=== PATIENT | female | born 1950 | race Caucasian/White ===

== ENCOUNTER 2017-08-14 11:32 | Emergency (ER) | payer OTHER, BC ==
[2017-08-14] MEDS: VANCOMYCIN 1,000 MG/NS 250 ML IV (12:15)
[2017-08-14] MEDS ORDERED: VANCOMYCIN 1 GM/200 ML INJ 200 ML IV (12:15)
[2017-08-14 13:06] LABS: AUTOMATED NEUTROPHIL # 10.2 TH/MM3 (1.8-7.7); BASOPHIL % 0.2 % (0.0-2.0); EOSINOPHIL # 0.1 TH/MM3 (0-0.4); EOSINOPHIL % 0.6 % (0.0-4.0); HEMATOCRIT 33.9 % (35.0-46.0); HEMO FLAGS DIFF FINAL; HEMOGLOBIN 10.6 GM/DL (11.6-15.3); LYMPH % 4.5 % (9.0-44.0); LYMPHOCYTE # 0.5 TH/MM3 (1.0-4.8); MEAN CELL VOLUME 89.7 FL (80.0-100.0); MEAN CORPUSCULAR HGB CONC 31.2 % (32.0-36.0); MEAN PLATELET VOLUME 8.6 FL (7.0-11.0); MONO % 6.1 % (0.0-8.0); MONOCYTE # 0.7 TH/MM3 (0-0.9); NEUT % 88.6 % (16.0-70.0); PLATELET COUNT 141 TH/MM3 (150-450); RED BLOOD COUNT 3.78 MIL/MM3 (4.00-5.30); RED CELL DISTRIBUTION WIDTH 19.5 % (11.6-17.2); WHITE BLOOD COUNT 11.6 TH/MM3 (4.0-11.0)
[2017-08-14 13:29] LABS: ALBUMIN 2.4 GM/DL (3.4-5.0); ALKALINE PHOSPHATASE 206 U/L (45-117); ALT (GPT) 37 U/L (10-53); ANION GAP 11 MEQ/L (5-15); AST (GOT) 32 U/L (15-37); BICARBONATE 30.8 MEQ/L (21.0-32.0); BLOOD UREA NITROGEN 41 MG/DL (7-18); CALCIUM 8.8 MG/DL (8.5-10.1); CHLORIDE 96 MEQ/L (98-107); CREATININE 3.29 MG/DL (0.50-1.00); GLOMERULAR FILTRATION RATE 14 ML/MIN (>89); GLUCOSE,RANDOM 73 MG/DL (74-106); MAGNESIUM 2.1 MG/DL (1.5-2.5); SODIUM (NA) 138 MEQ/L (136-145); TOTAL BILIRUBIN ADULT 0.6 MG/DL (0.2-1.0); TOTAL PROTEIN 5.2 GM/DL (6.4-8.2)
[2017-08-14 13:36] LABS: POTASSIUM 2.9 MEQ/L (3.5-5.1)
[2017-08-14 13:37] LABS: AMMONIA 11 MCMOL/L (11-32)
[2017-08-14 13:42] LABS: BACTERIA, URINE OCC /hpf; BILIRUBIN, URINE NEG (NEG); BLOOD, URINE MOD (NEG); COMMENT (UR) CATH-CULTURE IND; CULTURE IF INDICATED CATH CULTURE IND; GLUCOSE,URINE NEG (NEG); KETONE, URINE TRACE mg/dL (NEG); MUCUS URINE FEW /lpf (OCC); NITRITE,URINE NEG (NEG); URINE COLOR YELLOW (YELLW/STRAW); URINE LEUKOCYTE ESTERASE NEG (NEG)
[2017-08-14] MEDS: POTASSIUM CHLORIDE 20 MEQ CONTROLLED RELEASE TAB PO (14:22)
== END 2017-08-14 14:55 | disposition home or self-care (01) ==
LOC: NEPE 11:32
DX: R30.0 Dysuria (principal); B95.2 Enterococcus as the cause of diseases classified elsewhere; K72.90 Hepatic failure, unspecified without coma; K74.60 Unspecified cirrhosis of liver; I12.9 Hypertensive chronic kidney disease with stage 1 through stage 4 chronic kidney disease, or unspecified chronic kidney disease; N18.9 Chronic kidney disease, unspecified
CPT/HCPCS: 80053; 81001; 82140; 83735; 85025; 87040; 87077; 87086; 87186; 99283

== ENCOUNTER 2017-08-22 07:54 | Day surgery (SDC) | payer OTHER ==
[~2017-08-22 07:54] MED LIST: AMLO10TA2 PO; CALC0.25 PO; CEPH-460 PO; CLON0.1T PO; FLUO10TA PO; FURO40TA PO; OMEP40CA2 PO; PROP10TA6 PO; SODI650T PO
[2017-08-22 09:04] VITALS: BP 117/73; PULSE 57; RESP 18; TEMP 98.4; O2SAT 100
[2017-08-22 10:05] VITALS: BP 110/73; PULSE 60; RESP 18; TEMP 97.6; O2SAT 97
[2017-08-22] MEDS ORDERED: ALBUMIN HUMAN 25% 12.5GM-W/25GM FOR 37.5GM IV ONE (10:15)
[2017-08-22] MEDS ORDERED: ALBUMIN HUMAN 25% 25GM-W/12.5GM FOR 37.5GM IV ONE (10:15)
[2017-08-22 10:20] VITALS: BP 133/80; PULSE 57; RESP 18; O2SAT 95
[2017-08-22] MEDS ORDERED: LIDOCAINE HCL 1% 20 ML VIAL ONE (11:44)
[2017-08-22 11:47] LABS: PERITONEAL HISTIOCYTES 13 %; PERITONEAL LYMPHS 14 %; PERITONEAL MESOTHELIAL 2 %; PERITONEAL MONOS 26 %; PERITONEAL POLYS(SEGS) 45 %
[2017-08-22 12:01] LABS: PERITONEAL RBC 17 /MM3 (0-0)
--- NOTE | 2017-08-22 16:40 | RADRPT ---
EXAM DATE/TIME: 08/22/2017 08:15 [facility] COMPARISON: No previous studies available for comparison. INDICATIONS : Ascites. MEDICAL HISTORY : Hypertension. Alcoholic cirrhosis. Stage 4 kidney disease. Ulcer. SURGICAL HISTORY : Cholecystectomy Tubal ligation. Gastric bypass. Breast augmentation. ENCOUNTER: Initial ACUITY: 1 day PAIN SCORE: 0/10 LOCATION: Right lower quadrant FLUID: Total volume of 6,200 cc of clear, yellow fluid was removed. Fluid was sent to lab for ordered studies. Post procedure scanning reveals no hematoma or other complication. TECHNIQUE: 1. Ultrasound guidance for abdominal paracentesis. 2. Paracentesis. The risks, benefits, and alternatives to ultrasound guided paracentesis were explained to the patient in detail including the risk of bleeding and infection. Written and verbal informed consent was obt ained. With the patient on the ultrasound table, ultrasound imaging was used to select the most appropriate approach for paracentesis. Overlying skin was prepped and draped in the usual sterile fashion and wi th a local anesthetic, a dermatotomy was made with an 11 blade scalpel. A 6 Turkmen Ofr-H-hvphtpas ca theter was introduced into the peritoneal cavity and fluid was collected. The patient tolerated the procedure well and left the ultrasound suite in stable condition. CONCLUSION: Uncomplicated ultrasound guided paracentesis. Ruddy Nguyen MD on August 22, 2017 at 16:37 Board Certified Radiologist. This report was verified electronically.
== END 2017-08-22 11:16 | disposition home or self-care (01) ==
LOC: HRAD 07:54 → HRIP 08:00 → HRAD 11:16
PROVIDERS: ATTEND Internal Medicine Gastroenterology
DX: R18.8 Other ascites (principal); K74.60 Unspecified cirrhosis of liver; I12.9 Hypertensive chronic kidney disease with stage 1 through stage 4 chronic kidney disease, or unspecified chronic kidney disease; N18.4 Chronic kidney disease, stage 4 (severe); Z98.84 Bariatric surgery status
CPT/HCPCS: 49083; 82042; 84157; 87070; 87205; 88112; 89051; 96365; C1729; P9047

== ENCOUNTER 2017-09-05 09:50 | Day surgery (SDC) | payer MEDICARE ==
[2017-09-05 10:18] VITALS: BP 142/90; PULSE 100; RESP 16; TEMP 96.8; O2SAT 98
[2017-09-05] MEDS ORDERED: LIDOCAINE HCL 1% 20 ML VIAL ONE (10:50)
[2017-09-05 11:45] VITALS: BP 144/92; PULSE 76; RESP 20; TEMP 97.8; O2SAT 95
[2017-09-05] MEDS ORDERED: ALBUMIN HUMAN 25% 12.5GM-W/25GM FOR 37.5GM IV ONE (12:30)
[2017-09-05] MEDS ORDERED: ALBUMIN HUMAN 25% 25GM-W/12.5GM FOR 37.5GM IV ONE (12:30)
--- NOTE | 2017-09-05 16:43 | RADRPT ---
EXAM DATE/TIME: 09/05/2017 09:56 [facility] COMPARISON: US GUIDED ABD PARACENTESIS, August 22, 2017, 8:15. INDICATIONS : Ascites. MEDICAL HISTORY : Hypertension. Alcoholic cirrhosis. Stage IV renal disease. Ulcer. Ascites. SURGICAL HISTORY : Cholecystectomy Tubal ligation. Gastric bypass. Breast augmentation. Paracentesis. ENCOUNTER: Subsequent ACUITY: 2 weeks PAIN SCORE: 2/10 LOCATION: Right lower quadrant FLUID: Total volume of 6500 cc of clear, yellow fluid was removed. Fluid was discarded. Paracentesis was therapeutic only. Post procedure scanning reveals no hematoma or other complication. TECHNIQUE: 1. Ultrasound guidance for abdominal paracentesis. 2. Paracentesis. The risks, benefits, and alternatives to ultrasound guided paracentesis were explained to the patient in detail including the risk of bleeding and infection. Written and verbal informed consent was obt ained. With the patient on the ultrasound table, ultrasound imaging was used to select the most appropriate approach for paracentesis. Overlying skin was prepped and draped in the usual sterile fashion and wi th a local anesthetic, a dermatotomy was made with an 11 blade scalpel. A 6 B[place] Lls-F-hyhqqnhn ca theter was introduced into the peritoneal cavity and fluid was collected. The patient tolerated the procedure well and left the ultrasound suite in stable condition. CONCLUSION: Uncomplicated ultrasound guided paracentesis. Andrew Valencia MD on September 05, 2017 at 16:40 Board Certified Radiologist. This report was verified electronically.
== END 2017-09-05 13:20 | disposition home or self-care (01) ==
LOC: HRAD 09:50 → HRIP 09:51 → HRAD 13:20
PROVIDERS: ATTEND Internal Medicine Gastroenterology
DX: K70.31 Alcoholic cirrhosis of liver with ascites (principal); I12.9 Hypertensive chronic kidney disease with stage 1 through stage 4 chronic kidney disease, or unspecified chronic kidney disease; N18.4 Chronic kidney disease, stage 4 (severe)
CPT/HCPCS: 49083; 96365; C1729

== ENCOUNTER 2017-09-15 09:32 | Day surgery (SDC) | payer MEDICARE ==
[2017-09-15 10:00] VITALS: BP 128/83; PULSE 69; RESP 16; TEMP 97.3; O2SAT 100
[2017-09-15] MEDS ORDERED: ALBUMIN HUMAN 25% 12.5GM-W/25GM FOR 37.5GM IV ONE (12:15)
[2017-09-15] MEDS ORDERED: ALBUMIN HUMAN 25% 25GM-W/12.5GM FOR 37.5GM IV ONE (12:15)
[2017-09-15 12:30] VITALS: BP 126/73; PULSE 93; RESP 16; TEMP 96.2; O2SAT 98
--- NOTE | 2017-09-15 12:35 | RADRPT ---
EXAM DATE/TIME: 09/15/2017 10:07 [facility] COMPARISON: US GUIDED ABD PARACENTESIS, September 05, 2017, 9:56. INDICATIONS : Ascites. MEDICAL HISTORY : Hypertension. Peptic ulcers. Alcohol use. Breast cancer. Cirrhosis. SURGICAL HISTORY : Right breast lumpectomy. Gastric bypass. ENCOUNTER: Subsequent ACUITY: 1 week PAIN SCORE: 0/10 LOCATION: Right lower quadrant FLUID: Total volume of 6,100 cc of clear, yellow fluid was removed. Fluid was discarded. Paracentesis was therapeutic only. Post procedure scanning reveals no hematoma or other complication. TECHNIQUE: 1. Ultrasound guidance for abdominal paracentesis. 2. Paracentesis. The risks, benefits, and alternatives to ultrasound guided paracentesis were explained to the patient in detail including the risk of bleeding and infection. Written and verbal informed consent was obt ained. With the patient on the ultrasound table, ultrasound imaging was used to select the most appropriate approach for paracentesis. Overlying skin was prepped and draped in the usual sterile fashion and wi th a local anesthetic, a dermatotomy was made with an 11 blade scalpel. A 6 Slovenian Wxf-W-lywqrqrs ca theter was introduced into the peritoneal cavity and fluid was collected. The patient tolerated the procedure well and left the ultrasound suite in stable condition. CONCLUSION: Uncomplicated ultrasound guided paracentesis. Arias Licona MD on September 15, 2017 at 12:33 Board Certified Radiologist. This report was verified electronically.
[2017-09-15] MEDS ORDERED: LIDOCAINE HCL 1% 20 ML VIAL ONE (12:49)
[2017-09-15 13:15] VITALS: BP 119/69; PULSE 93; RESP 16; O2SAT 98
[2017-09-15 13:30] VITALS: BP 116/68; PULSE 90; RESP 16; O2SAT 98
[2017-09-19] MEDS ORDERED: POTA-163 PO (11:59)
[2017-09-19] MEDS ORDERED: PROM12.54 PO (11:59)
[2017-09-19] MEDS ORDERED: PRED20 PO (11:59)
[2017-09-19] MEDS ORDERED: BIOT10TA PO (11:59)
[2017-09-19] MEDS ORDERED: ONDA8TAB7 PO (11:59)
== END 2017-09-15 13:30 | disposition home or self-care (01) ==
LOC: HRAD 09:32 → HRIP 09:35 → HRAD 13:30
PROVIDERS: ATTEND Internal Medicine Gastroenterology
DX: R18.8 Other ascites (principal); I10 Essential (primary) hypertension; K74.60 Unspecified cirrhosis of liver; Z85.3 Personal history of malignant neoplasm of breast; Z87.11 Personal history of peptic ulcer disease
CPT/HCPCS: 49083; 96365; C1729; P9047

== ENCOUNTER 2017-10-11 09:49 | Day surgery (SDC) | payer MEDICARE ==
[~2017-10-11 09:49] MED LIST changes: +BIOT10TA PO; -CEPH-460 PO; +ONDA8TAB7 PO; +POTA-163 PO; +PRED20 PO; +PROM12.54 PO
[2017-10-11 10:50] VITALS: BP 104/60; PULSE 62; RESP 16; TEMP 98; O2SAT 99
[2017-10-11] MEDS ORDERED: ALBUMIN 25% INJ 0 ML IV ONE (11:30)
[2017-10-11 11:55] VITALS: BP 97/65; PULSE 62; RESP 18; TEMP 96.9; O2SAT 96
[2017-10-11] MEDS ORDERED: LIDOCAINE HCL 1% 20 ML VIAL ONE (12:03)
--- NOTE | 2017-10-11 12:15 | RADRPT ---
EXAM DATE/TIME: 10/11/2017 10:38 [facility] COMPARISON: No previous studies available for comparison. INDICATIONS : Ascites. MEDICAL HISTORY : Carcinoma, breast. Hypertension. Cirrhosis. Peptic ulcers. ETOH abuse. Ascites. SURGICAL HISTORY : Right breast lumpectomy. Gastric bypass. Paracentesis. ENCOUNTER: [facility] ACUITY: 1 month PAIN SCORE: 0/10 LOCATION: Right lower quadrant FLUID: Total volume of 5,400 cc of clear, yellow fluid was removed. Fluid was discarded. Paracentesis was therapeutic only. TECHNIQUE: 1. Ultrasound guidance for abdominal paracentesis. 2. Paracentesis. The risks, benefits, and alternatives to ultrasound guided paracentesis were explained to the patient in detail including the risk of bleeding and infection. Written and verbal informed consent was obt ained. With the patient on the ultrasound table, ultrasound imaging was used to select the most appropriate approach for paracentesis. Overlying skin was prepped and draped in the usual sterile fashion and wi th a local anesthetic, a dermatotomy was made with an 11 blade scalpel. A 6 Indonesian Zfg-K-ztkuihvq ca theter was introduced into the peritoneal cavity and fluid was collected. The patient tolerated the procedure well and left the ultrasound suite in stable condition. CONCLUSION: Uncomplicated ultrasound guided paracentesis. David North MD on October 11, 2017 at 12:13 Board Certified Radiologist. This report was verified electronically.
[2017-10-11 12:30] VITALS: BP 102/67; PULSE 68; RESP 20; TEMP 97.2; O2SAT 96
== END 2017-10-11 12:40 | disposition home or self-care (01) ==
LOC: HRAD 09:49 → HRIP 09:52 → HRAD 12:40
PROVIDERS: ATTEND Internal Medicine Gastroenterology
DX: R18.8 Other ascites (principal); K74.60 Unspecified cirrhosis of liver; I10 Essential (primary) hypertension; Z85.3 Personal history of malignant neoplasm of breast; Z87.11 Personal history of peptic ulcer disease
CPT/HCPCS: 49083; 96365; C1729; P9047

== ENCOUNTER 2017-10-25 12:25 | Day surgery (SDC) | payer MEDICARE ==
[2017-10-25 12:52] LABS: AUTOMATED NEUTROPHIL # 6.2 TH/MM3 (1.8-7.7); BASOPHIL # 0.1 TH/MM3 (0-0.2); BASOPHIL % 0.9 % (0.0-2.0); EOSINOPHIL # 0.3 TH/MM3 (0-0.4); EOSINOPHIL % 3.8 % (0.0-4.0); HEMOGLOBIN 9.2 GM/DL (11.6-15.3); LYMPH % 8.5 % (9.0-44.0); LYMPHOCYTE # 0.7 TH/MM3 (1.0-4.8); MEAN CELL VOLUME 85.3 FL (80.0-100.0); MEAN CORPUSCULAR HEMOGLOBIN 27.1 PG (27.0-34.0); MEAN CORPUSCULAR HGB CONC 31.8 % (32.0-36.0); MEAN PLATELET VOLUME 8.2 FL (7.0-11.0); MONO % 9.7 % (0.0-8.0); MONOCYTE # 0.8 TH/MM3 (0-0.9); NEUT % 77.1 % (16.0-70.0); PLATELET COUNT 226 TH/MM3 (150-450); RED CELL DISTRIBUTION WIDTH 19.9 % (11.6-17.2)
[2017-10-25 13:10] LABS: INTERNATIONAL NORMALIZED RATIO 1.1 RATIO; PROTHROMBIN TIME - PATIENT 11.5 SEC (9.8-11.6)
--- NOTE | 2017-10-25 16:38 | RADRPT ---
EXAM DATE/TIME: 10/25/2017 13:16 [facility] COMPARISON: No previous studies available for comparison. INDICATIONS : Ascites. MEDICAL HISTORY : Hypertension. Cirrhosis. Breast cancer. SURGICAL HISTORY : Gastric bypass. Right breast lumpectomy. ENCOUNTER: [facility] ACUITY: 2 days PAIN SCORE: 2/10 LOCATION: Bilateral upper and lower quadrant. AREA EVALUATED: Four quadrant. FINDINGS: Imaging of the abdomen and pelvis was performed to evaluate for ascites for possible paracentesis. S mall amount fluid is identified in the right upper quadrant and midline lower abdomen. Insufficient v olume for safe percutaneous drainage CONCLUSION: Minimal ascites.. Mick Marquis MD on October 25, 2017 at 16:35 Board Certified Radiologist. This report was verified electronically.
== END 2017-10-25 15:00 | disposition home or self-care (01) ==
LOC: HRAD 12:25 → HRIP 12:28 → HRAD 15:00
PROVIDERS: ATTEND Internal Medicine Gastroenterology
DX: K70.31 Alcoholic cirrhosis of liver with ascites (principal); I10 Essential (primary) hypertension; Z85.3 Personal history of malignant neoplasm of breast; Z98.84 Bariatric surgery status
CPT/HCPCS: 36415; 76705; 85025; 85610; 85730

== ENCOUNTER → 2017-10-26 | Outpatient (CLI) | payer MEDICARE ==
[2017-10-26 15:37] LABS: BILIRUBIN, URINE NEG (NEG); BLOOD, URINE SMALL (NEG); GLUCOSE,URINE NEG (NEG); HYALINE CAST, URINE 7 /lpf (RARE); KETONE, URINE NEG (NEG); MUCUS URINE FEW /lpf (OCC); NITRITE,URINE NEG (NEG); PH, URINE 6.5 (5.0-8.5); SQUAMOUS EPITHELIAL CELL URINE 1 /hpf (0-5); URINE COLOR YELLOW (YELLW/STRAW); URINE LEUKOCYTE ESTERASE NEG (NEG)
== END ==
LOC: CLAB 15:13
PROVIDERS: ATTEND Physician Assistant
DX: R10.9 Unspecified abdominal pain (principal); N01.9 Rapidly progressive nephritic syndrome with unspecified morphologic changes
CPT/HCPCS: 81001

== ENCOUNTER 2017-11-01 09:50 | Day surgery (SDC) | payer MEDICARE ==
[2017-11-01 10:16] VITALS: BP 136/79; PULSE 65; RESP 16; TEMP 97.6; O2SAT 99
[2017-11-01] MEDS ORDERED: ALBUMIN 25% INJ 0 ML IV ONE (11:00)
[2017-11-01 11:25] VITALS: BP 129/81; PULSE 66; RESP 18; TEMP 98.1; O2SAT 94
--- NOTE | 2017-11-01 11:39 | RADRPT ---
EXAM DATE/TIME: 11/01/2017 10:26 [facility] COMPARISON: US GUIDED ABD PARACENTESIS, October 11, 2017, 10:38. INDICATIONS : Ascites MEDICAL HISTORY : Carcinoma, breast. Hypertension. Cirrhosis. Peptic ulcers. ETOH abuse. SURGICAL HISTORY : Right breast lumpectomy. Gastric bypass. Paracentesis. ENCOUNTER: Subsequent ACUITY: 3 weeks PAIN SCORE: 2/10 LOCATION: Right lower quadrant FLUID: Total volume of 3800 cc of clear, yellow fluid was removed. Fluid was discarded. Paracentesis was therapeutic only. Post procedure scanning reveals no hematoma or other complication. TECHNIQUE: 1. Ultrasound guidance for abdominal paracentesis. 2. Paracentesis. The risks, benefits, and alternatives to ultrasound guided paracentesis were explained to the patient in detail including the risk of bleeding and infection. Written and verbal informed consent was obt ained. With the patient on the ultrasound table, ultrasound imaging was used to select the most appropriate approach for paracentesis. Overlying skin was prepped and draped in the usual sterile fashion and wi th a local anesthetic, a dermatotomy was made with an 11 blade scalpel. A 6 Yakut Yrw-H-zvpeiwmw ca theter was introduced into the peritoneal cavity and fluid was collected. The patient tolerated the procedure well and left the ultrasound suite in stable condition. CONCLUSION: Uncomplicated ultrasound guided paracentesis. Hao Licona MD FACR on November 01, 2017 at 11:36 Board Certified Radiologist. This report was verified electronically.
[2017-11-01 11:40] VITALS: BP 133/73; PULSE 67; RESP 18; O2SAT 93
[2017-11-01] MEDS ORDERED: LIDOCAINE HCL 1% 20 ML VIAL ONE (11:43)
== END 2017-11-01 11:50 | disposition home or self-care (01) ==
LOC: HRAD 09:50 → HRIP 09:54 → HRAD 11:50
PROVIDERS: ATTEND Internal Medicine Gastroenterology
DX: R18.8 Other ascites (principal); I10 Essential (primary) hypertension; K74.60 Unspecified cirrhosis of liver; F10.10 Alcohol abuse, uncomplicated; Z98.84 Bariatric surgery status; Z87.11 Personal history of peptic ulcer disease; Z85.3 Personal history of malignant neoplasm of breast
CPT/HCPCS: 49083; C1729

== ENCOUNTER 2017-11-17 07:42 | Day surgery (SDC) | payer MEDICARE ==
[2017-11-17 08:03] VITALS: BP 130/90; PULSE 76; RESP 16; TEMP 97.8; O2SAT 97
[2017-11-17 09:30] VITALS: BP 134/82; PULSE 69; RESP 16; RESP 18; TEMP 98.1; O2SAT 97
[2017-11-17] MEDS ORDERED: ALBUMIN 25% INJ 0 ML IV ONE (09:30)
[2017-11-17] MEDS ORDERED: LIDOCAINE HCL 1% PF 30 ML VIAL ONE (09:44)
[2017-11-17 09:45] VITALS: BP 129/86; PULSE 65; RESP 16; TEMP 97.8; O2SAT 97
--- NOTE | 2017-11-17 10:31 | RADRPT ---
EXAM DATE/TIME: 11/17/2017 08:24 [facility] COMPARISON: US GUIDED ABD PARACENTESIS, November 01, 2017, 10:26. INDICATIONS : Ascites. MEDICAL HISTORY : Carcinoma, breast. Hypertension. Cirrhosis. Peptic ulcers. ETOH abuse. SURGICAL HISTORY : Right breast lumpectomy. Gastric bypass. Paracentesis. ENCOUNTER: Subsequent ACUITY: 2 weeks PAIN SCORE: 3/10 LOCATION: Right lower quadrant FLUID: Total volume of 2500 cc of clear, yellow fluid was removed. Fluid was discarded. Paracentesis was therapeutic only. Post procedure scanning reveals no hematoma or other complication. TECHNIQUE: 1. Ultrasound guidance for abdominal paracentesis. 2. Paracentesis. The risks, benefits, and alternatives to ultrasound guided paracentesis were explained to the patient in detail including the risk of bleeding and infection. Written and verbal informed consent was obt ained. With the patient on the ultrasound table, ultrasound imaging was used to select the most appropriate approach for paracentesis. Overlying skin was prepped and draped in the usual sterile fashion and wi th a local anesthetic, a dermatotomy was made with an 11 blade scalpel. A 6 Liberian Wac-P-tvmvmdfi ca theter was introduced into the peritoneal cavity and fluid was collected. The patient tolerated the procedure well and left the ultrasound suite in stable condition. CONCLUSION: Uncomplicated ultrasound guided paracentesis. Milad Das MD on November 17, 2017 at 10:28 Board Certified Radiologist. This report was verified electronically.
== END 2017-11-17 09:45 | disposition home or self-care (01) ==
LOC: HRAD 07:42 → HRIP 08:09 → HRAD 09:45
PROVIDERS: ATTEND Internal Medicine Gastroenterology
DX: R18.8 Other ascites (principal); Z85.3 Personal history of malignant neoplasm of breast; I10 Essential (primary) hypertension; K74.60 Unspecified cirrhosis of liver; Z87.11 Personal history of peptic ulcer disease; F10.10 Alcohol abuse, uncomplicated
CPT/HCPCS: 49083; C1729

== ENCOUNTER 2017-12-08 08:49 | Day surgery (SDC) | payer MEDICARE ==
[~2017-12-08 08:49] MED LIST changes: +SPIR50TA PO
[2017-12-08 09:53] LABS: BASOPHIL % 0.6 % (0.0-2.0); EOSINOPHIL # 0.1 TH/MM3 (0-0.4); EOSINOPHIL % 1.2 % (0.0-4.0); HEMATOCRIT 28.9 % (35.0-46.0); HEMOGLOBIN 9.3 GM/DL (11.6-15.3); LYMPH % 14.6 % (9.0-44.0); MEAN CELL VOLUME 81.8 FL (80.0-100.0); MEAN CORPUSCULAR HEMOGLOBIN 26.4 PG (27.0-34.0); MEAN CORPUSCULAR HGB CONC 32.3 % (32.0-36.0); MEAN PLATELET VOLUME 8.6 FL (7.0-11.0); MONOCYTE # 0.7 TH/MM3 (0-0.9); NEUT % 73.6 % (16.0-70.0); PLATELET COUNT 265 TH/MM3 (150-450); RED BLOOD COUNT 3.53 MIL/MM3 (4.00-5.30); RED CELL DISTRIBUTION WIDTH 19.1 % (11.6-17.2); WHITE BLOOD COUNT 6.8 TH/MM3 (4.0-11.0)
[2017-12-08 09:58] LABS: INTERNATIONAL NORMALIZED RATIO 1.1 RATIO; PROTHROMBIN TIME - PATIENT 11.4 SEC (9.8-11.6)
[2017-12-08 10:01] LABS: ALBUMIN 2.9 GM/DL (3.4-5.0); AST (GOT) 42 U/L (15-37); BICARBONATE 26.7 MEQ/L (21.0-32.0); BLOOD UREA NITROGEN 41 MG/DL (7-18); CALCIUM 8.9 MG/DL (8.5-10.1); CHLORIDE 107 MEQ/L (98-107); CREATININE 2.65 MG/DL (0.50-1.00); GLOMERULAR FILTRATION RATE 18 ML/MIN (>89); GLUCOSE,FASTING 86 MG/DL (74-99); SODIUM (NA) 143 MEQ/L (136-145)
[2017-12-08 10:02] LABS: ALT (GPT) 28 U/L (10-53)
[2017-12-08 10:05] LABS: ALKALINE PHOSPHATASE 146 U/L (45-117); TOTAL BILIRUBIN ADULT 0.2 MG/DL (0.2-1.0); TOTAL PROTEIN 6.3 GM/DL (6.4-8.2)
--- NOTE | 2017-12-08 10:21 | RADRPT ---
EXAM DATE/TIME: 12/08/2017 09:53 [facility] COMPARISON: US GUIDED ABD PARACENTESIS, November 17, 2017, 8:24. INDICATIONS : Ascites. MEDICAL HISTORY : Carcinoma, breast. Hypertension. Cirrhosis. Peptic ulcers. ETOH abuse. SURGICAL HISTORY : Right breast lumpectomy. Gastric bypass. Paracentesis. ENCOUNTER: Subsequent ACUITY: 3 weeks PAIN SCORE: 0/10 LOCATION: Bilateral abdomen. AREA EVALUATED: Abdomen. FINDINGS: Imaging of the abdomen and pelvis was performed to evaluate for ascites for possible paracentesis. Th ere is only minimal ascitic fluid remaining. This did not appear to be sufficient volume to warrant t ap. CONCLUSION: 1. There is only minimal ascites around the liver. No procedure was performed. Arias Licona MD on December 08, 2017 at 10:18 Board Certified Radiologist. This report was verified electronically.
== END 2017-12-08 10:15 | disposition home or self-care (01) ==
LOC: HRAD 08:49 → HRIP 08:50 → CLAB 10:15
PROVIDERS: ATTEND Internal Medicine Gastroenterology
DX: K70.31 Alcoholic cirrhosis of liver with ascites (principal); I10 Essential (primary) hypertension; Z85.3 Personal history of malignant neoplasm of breast; Z87.11 Personal history of peptic ulcer disease; Z98.84 Bariatric surgery status
CPT/HCPCS: 36415; 76705; 80053; 82105; 85025; 85610; 85730